=== PATIENT | female | born 1965 | race Two or more races ===

== ENCOUNTER 2020-09-07 19:47 | Observation (INO) | payer OTHER ==
[~2020-09-07] VITALS: Ht 165.1 cm; Wt 118.0 kg
[2020-09-07 21:33] LABS: BILIRUBIN,URINE NEGATIVE (NEG); CLARITY,URINE CLEAR; COLOR,URINE YELLOW; NITRITE,URINE NEGATIVE (NEG); PROTEIN,URINE NEGATIVE (NEG-TRACE); UROBILINOGEN,URINE 0.2 mg/dL (0.2 mg/dL)
--- NOTE | 2020-09-07 21:35 | PHYS DOC ---
Past Medical History Past Medical History: Other Additional Past Medical Histor: polycystic kidney disease (LORETTAPRIYANKA Sewell RESPIRATORY THERAPIST ASSISTANT) Past Surgical History: , Other Additional Past Surgical Histo: ankle fracture repair, hernia repair (ROCHELLEPRIYANKA DELGADO RESPIRATORY THERAPIST ASSISTANT) Smoking Status: Never Smoker Alcohol Use: None Drug Use: None (ROCHELLEPRIYANKA DELGADO RESPIRATORY THERAPIST ASSISTANT) General Adult EDM: Chief Complaint: ABDOMINAL PAIN HPI: HPI: Patient is a 55 year old female with history of acid reflux, who presents to the ED today complaining of mild intermittent generalized abdominal pain with nausea that began yesterday. Patient describes the pain as a bloating feeling. Patient states she thought she was constipated, she took a stool softener and had loose stools this morning. Denies any vomiting. Denies anything specifically alleviating or relieving the pain. (LORETTAPRIYANKA Sewell RESPIRATORY THERAPIST ASSISTANT) Review of Systems: Review of Systems: Constitutional: Denies fever or chills. [] Eyes: Denies change in visual acuity. [] HENT: Denies nasal congestion or sore throat. [] Respiratory: Denies cough or shortness of breath. [] Cardiovascular: Denies chest pain or edema. [] GI: Reports generalized abdominal pain, diarrhea after stool softener, denies vomiting, bloody stools : Denies dysuria. [] Musculoskeletal: Denies back pain or joint pain. [] Integument: Denies rash. [] Neurologic: Denies headache, focal weakness or sensory changes. [] Psychiatric: Denies depression or anxiety. [] (PRIYANKA MADRIGAL RESPIRATORY THERAPIST ASSISTANT) Heart Score: C/O Chest Pain: N/A Risk Factors: Risk Factors: DM, Current or recent (<one month) smoker, HTN, HLP, family history of CAD, obesity. Risk Scores: Score 0 - 3: 2.5% MACE over next 6 weeks - Discharge Home Score 4 - 6: 20.3% MACE over next 6 weeks - Admit for Clinical Observation Score 7 - 10: 72.7% MACE over next 6 weeks - Early Invasive Strategies (PRIYANKA MADRIGAL RESPIRATORY THERAPIST ASSISTANT) Allergies: Allergies: Allergies Coded Allergies Type Severity Reaction Last Updated Verified hydrocodone Adverse Reaction Intermediate headache 01/24/15 Yes (PRIYANKA MADRIGAL RESPIRATORY THERAPIST ASSISTANT) Physical Exam: PE: Constitutional: Well developed, well nourished, no acute distress, non-toxic appearance. [] HENT: Normocephalic, atraumatic, bilateral external ears normal, oropharynx moist, no oral exudates, nose normal. [] Eyes: PERRLA, EOMI, conjunctiva normal, no discharge. [] Neck: Normal range of motion, no tenderness, supple, no stridor. [] Cardiovascular:Heart rate regular rhythm, no murmur [] Lungs & Thorax: Bilateral breath sounds clear to auscultation [] Abdomen: Bloated abdomen. Bowel sounds normal, soft, no tenderness, no masses, no pulsatile masses. [] Skin: Warm, dry, no erythema, no rash. [] Back: No tenderness, no CVA tenderness. [] Extremities: No tenderness, no cyanosis, no clubbing, ROM intact, no edema. [] Neurologic: Alert and oriented X 3, normal motor function, normal sensory function, no focal deficits noted. [] Psychologic: Affect normal, judgement normal, mood normal. [] (PRIYANKA MADRIGAL APRN) Current Patient Data: Vital Signs: Vital Signs Date Time Temp Pulse Resp B/P (MAP) Pulse Ox O2 Delivery O2 Flow Rate FiO2 09/07/20 19:47 98.6 64 18 155/104 (117) 98 Room Air 98.6 (PRIYANKA MADRIGAL APRN) EKG: EKG: [] (PRIYANKA MADRIGAL APRN) Radiology/Procedures: Radiology/Procedures: [] (PRIYANKA MADRIGAL APRN) Radiology/Procedures: IMAGING REPORT Signed PATIENT: LETITIA GALLAGHER ACCOUNT: [id number] : 1965 LOCATION: ER AGE: 55 SEX: F EXAM STATUS: REG ER ORD. PHYSICIAN: PRIYANKA MADRIGAL APRN REASON: abd pain constipation? PROCEDURE: CT ABDOMEN PELVIS WO CONTRAST Study: CT abdomen/pelvis without intravenous contrast Indication: Abdominal pain. Constipation. Comparison: 01/24/2015 Technique: Helical CT imaging performed of the abdomen and pelvis without the use of intravenous contrast. Sagittal and coronal reformats were obtained. One or more of the following individualized dose reduction techniques were utilized for this examination: 1. Automated exposure control 2. Adjustment of the mA and/or kV according to patient size 3. Use of iterative reconstruction technique. Findings: Inherently limited evaluation without intravenous contrast. Chest: No significant abnormality at the lower chest. Liver: Innumerable hepatic cystic foci. Many have increased in size from the comparison but measures simple density. Gallbladder/Biliary Tree: No CT manifestations of acute cholecystitis. Nondilated biliary tree. Pancreas: No peripancreatic inflammation or ductal dilatation. Spleen: Normal in size. Adrenal Glands: No adrenal gland mass. Kidneys/Ureters/Bladder: Enlarged polycystic kidneys. No cyst is identified on this noncontrast study with complex features. Unremarkable urinary bladder. Reproductive Organs: Within normal limits. Colon: Only a small amount of stool within the colon. No localized wall thickening or surrounding inflammation. Appendix: Normal. Small Bowel: Nonobstructed. Stomach: Within normal limits noting limited assessment on account of underdistention. Vasculature: Nonaneurysmal aorta. Mild scattered calcific atherosclerosis. Nonspecific fatty stranding along the inferior mesenteric artery which faintly extends along the lower abdominal aorta and common iliac arteries. Lymph Nodes: No lymphadenopathy by size criteria. Peritoneum and Body Wall: Trace free fluid such as seen within the pelvis on image 78 series 2. No pneumoperitoneum. Unchanged soft tissue fullness at the umbilicus. Bones: No acute or aggressive osseous process. Mild degenerative changes at a few locations. Miscellaneous: None. Impression: 1. No acute abnormality is identified throughout the abdomen or pelvis. There is only a small amount of well-formed stool within the colon. 2. Polycystic kidney disease in addition to innumerable hepatic cysts. These findings were present on the 2015 comparison. No newly seen cyst with complex features noting the absence of intravenous contrast. 3. There is fatty stranding along the inferior mesenteric artery and faintly along the distal abdominal aorta and common iliac arteries. This is nonspecific but is of questionable significance. Notably there are no findings involving the colon that would suggest ischemia. 4. Trace free pelvic fluid could be related to chronic renal insufficiency. Electronically signed by: MAX HAMM MD (09/07/2020 10:56 PM) [facility] DICTATED and SIGNED BY: MAX HAMM MD DATE: 09/07/20 [id number] ([facility]) Course & Med Decision Making: Course & Med Decision Making Pertinent Labs and Imaging studies reviewed. (See chart for details) This is a 55-year-old female patient presenting to the ED today complaining of generalized abdominal pain described as bloating. Patient was constipated yesterday and took a stool softener and had loose stool this morning. CBC with a WBC of 11.3, CMP with no acute findings, UA positive for small amount of leukocytes and 11-20 WBCs. Patient was given Rocephin in the ED, IV fluids, Pepcid, Zofran and Toradol. Will refrain from any narcotics due to possible constipation risk [address] Martinez, pending CT of the abdomen and (PRIYANKA MADRIGAL APRN) Course & Med Decision Making I received signout from a SERVICE CENTER COORDINATOR at shift change. On re-evaluation, patient describes her pain was severe that started in the upper abdomen and moved to her lower abdomen over the past day, improved with analgesia in ed but states her pain has not resolved. CT findings show fatty stranding along the inferior mesenteric artery and faintly along the distal abdominal aorta and common iliac arteries. This is nonspecific but is of questionable significance. Notably there are no findings involving the colon that would suggest ischemia. Pt with daughter at bedside, (patient consents to his/her/their knowledge and involvement in pts' medical care), who is concerned pt has a uti. Both pt and daughter concerned about recurring pain and long ed wait times. Given possible concern for bowel ischemia, lactic acid ordered and will admit for further medical management/serial abdominal exams. Patient stable time of admission and agrees to this plan. I have spoken with the patient and/or caregivers. I have explained the patient's condition, diagnosis and treatment plan based on the information available to me at this time. I have answered the patient's and/or caregivers questions and answered any concerns. The patient and/or caregivers have as good an understanding of the patient's diagnosis, condition and treatment plan as can be expected at this point. The patient has been stabilized within the capability of the emergency department. The patient will be transported for further care and management or will be moved to an observation or inpatient service. I have communicated with the staff or medical practitioner taking over this patient's care. (ELAINA MARTINEZ DO) Conchita Disclaimer: Dragon Disclaimer: This electronic medical record was generated, in whole or in part, using a voice recognition dictation system. (PRIYANKA MADRIGAL APRN) Departure Departure Impression: Primary Impression: Abdominal pain Additional Impressions: UTI (urinary tract infection) Nausea Disposition: ADMITTED INPATIENT Admitting Physician: YOBANI (Dr. Sales) (ELAINA MARTINEZ DO) Condition: STABLE Referrals: UNKNOWN PCP NAME (PCP) follow up with your doctor in one week Patient Instructions: Urinary Tract Infection PRIYANKA MADRIGAL APRN Sep 07, 2020 21:35 ELAINA MARTINEZ DO Sep 07, 2020 23:07
[2020-09-07 21:39] LABS: BASO # 0.1 x10^3/uL (0.0-0.2); BASO % 1 % (0-3); EOS # 0.1 x10^3/uL (0.0-0.7); EOS % 1 % (0-3); HEMATOCRIT 45.7 % (36.0-47.0); HEMOGLOBIN 15.7 g/dL (12.0-15.5); LYMPH # 1.4 x10^3/uL (1.0-4.8); LYMPH % 13 % (24-48); MEAN CORPUSCULAR HEMOGLOBIN 30 pg (25-35); MEAN CORPUSCULAR HGB CONC 34 g/dL (31-37); MEAN CORPUSCULAR VOLUME 87 fL (79-100); MONO % 9 % (0-9); NEUT # 8.7 x10^3/uL (1.8-7.7); NEUT % 77 % (31-73); PLATELET COUNT 206 x10^3/uL (140-400); RED BLOOD COUNT 5.23 x10^6/uL (3.50-5.40); WHITE BLOOD COUNT 11.3 x10^3/uL (4.0-11.0)
[2020-09-07 21:45] LABS: BACTERIA,URINE 0 /HPF (0-FEW); RBC,URINE 0 /HPF (0-2)
[2020-09-07 21:51] LABS: CREATININE 1.1 mg/dL (0.6-1.0); GFR 51.4; POTASSIUM 3.6 mmol/L (3.5-5.1)
[2020-09-07 21:57] LABS: ALBUMIN 3.7 g/dL (3.4-5.0); ALBUMIN/GLOBULIN RATIO 0.9 (1.0-1.7); TOTAL BILIRUBIN 0.9 mg/dL (0.2-1.0); TOTAL PROTEIN 7.7 g/dL (6.4-8.2)
[2020-09-07] MEDS ORDERED: FAMOTIDINE 20 MG/2 ML VIAL IVP ONE (22:00)
[2020-09-07] MEDS ORDERED: ONDANSETRON PF 4 MG/2 ML VIAL. IVP ONE (22:00)
[2020-09-07] MEDS ORDERED: KETOROLAC 30 MG/ML VIAL. IVP ONE (22:00)
[2020-09-07] MEDS ORDERED: cefTRIAXone IV Push 1 GM VIAL. IVP ONE (22:30)
[2020-09-07] MEDS ORDERED: IV NORMAL SALINE 1000ML BAG 1,000 ML IV ONE (22:30)
--- NOTE | 2020-09-07 22:58 | RAD ---
Study: CT abdomen/pelvis without intravenous contrast Indication: Abdominal pain. Constipation. Comparison: 01/24/2015 Technique: Helical CT imaging performed of the abdomen and pelvis without the use of intravenous cont rast. Sagittal and coronal reformats were obtained. One or more of the following individualized dose reduction techniques were utilized for this examinat ion: 1. Automated exposure control 2. Adjustment of the mA and/or kV according to patient size 3. Use of iterative reconstruction technique. Findings: Inherently limited evaluation without intravenous contrast. Chest: No significant abnormality at the lower chest. Liver: Innumerable hepatic cystic foci. Many have increased in size from the comparison but measures simple density. Gallbladder/Biliary Tree: No CT manifestations of acute cholecystitis. Nondilated biliary tree. Pancreas: No peripancreatic inflammation or ductal dilatation. Spleen: Normal in size. Adrenal Glands: No adrenal gland mass. Kidneys/Ureters/Bladder: Enlarged polycystic kidneys. No cyst is identified on this noncontrast study with complex features. Unremarkable urinary bladder. Reproductive Organs: Within normal limits. Colon: Only a small amount of stool within the colon. No localized wall thickening or surrounding inf lammation. Appendix: Normal. Small Bowel: Nonobstructed. Stomach: Within normal limits noting limited assessment on account of underdistention. Vasculature: Nonaneurysmal aorta. Mild scattered calcific atherosclerosis. Nonspecific fatty strandin g along the inferior mesenteric artery which faintly extends along the lower abdominal aorta and comm on iliac arteries. Lymph Nodes: No lymphadenopathy by size criteria. Peritoneum and Body Wall: Trace free fluid such as seen within the pelvis on image 78 series 2. No pn eumoperitoneum. Unchanged soft tissue fullness at the umbilicus. Bones: No acute or aggressive osseous process. Mild degenerative changes at a few locations. Miscellaneous: None. Impression: 1. No acute abnormality is identified throughout the abdomen or pelvis. There is only a small amount of well-formed stool within the colon. 2. Polycystic kidney disease in addition to innumerable hepatic cysts. These findings were present o n the 2014 comparison. No newly seen cyst with complex features noting the absence of intravenous con trast. 3. There is fatty stranding along the inferior mesenteric artery and faintly along the distal abdomi nal aorta and common iliac arteries. This is nonspecific but is of questionable significance. Notably there are no findings involving the colon that would suggest ischemia. 4. Trace free pelvic fluid could be related to chronic renal insufficiency. Electronically signed by: MAX HAMM MD (09/07/2020 10:56 PM) [facility]
[2020-09-08] MEDS: IV NORMAL SALINE 1000ML BAG 1,000 ML IV SCH ×2 (00:50→10:37)
[2020-09-08 02:30] VITALS: BP 129/76
[2020-09-08] MEDS ORDERED: LISI10TA16 PO (02:51)
--- NOTE | 2020-09-08 03:44 | NUR ---
admitted to room 408 at 0213, admission care done
[2020-09-08 07:00] VITALS: BP 144/80
[2020-09-08 11:00] VITALS: BP 145/80
[2020-09-08] MEDS ORDERED: AMOX1TAB61 PO (13:02)
--- NOTE | 2020-09-08 14:06 | SSS ---
ADMIT DATE: 09/08/2020 SHORT STAY SUMMARY CHIEF COMPLAINT: Nausea, vomiting, diarrhea. HISTORY OF PRESENT ILLNESS: The patient is a pleasant 55-year-old female who ate some bad coleslaw on Wednesday. Since then, she has been having some cramping with some associated nausea. She also had some loose stools. She came to the ER last night for evaluation, admitted overnight for observation. This morning, she is doing better and wants to go home, but once this get a second opinion from the maid supervisor before she leaves. PAST MEDICAL HISTORY: Hypertension. ALLERGIES: HYDROCODONE. FAMILY HISTORY: Diabetes. SOCIAL HISTORY: She does not drink, smoke or take drugs. MEDICATIONS: Reviewed, please refer to the [facility]. Augmentin 875 p.o. b.i.d. and lisinopril 10 a day. REVIEW OF SYSTEMS: GENERAL: No history of weight change, weakness or fevers. SKIN: No bruising, hair changes or rashes. EYES: No blurred, double or loss of vision. NOSE AND THROAT: No history of nosebleeds, hoarseness or sore throat. HEART: No history of palpitations, chest pain or shortness of breath on exertion. LUNGS: Denies cough, hemoptysis, wheezing or shortness of breath. GASTROINTESTINAL: Denies changes in appetite, nausea, vomiting, diarrhea or constipation. GENITOURINARY: No history of frequency, urgency, hesitancy or nocturia. NEUROLOGIC: Denies history of numbness, tingling, tremor or weakness. PSYCHIATRIC: No history of panic, anxiety or depression. ENDOCRINE: No history of heat or cold intolerance, polyuria or polydipsia. EXTREMITIES: Denies muscle weakness, joint pain, pain on walking or stiffness. PHYSICAL EXAMINATION: VITALS: Within normal limits and are stable. GENERAL: No apparent distress. Alert and oriented. HEENT: Normal cephalic atraumatic, external auditory canals are patent EYES: Extraocular muscles are intact, pupils are equally round and reactive to light and accommodation MUSCULOSKELETAL: Well developed, well nourished, good range of motion ENDOCRINE: No thyromegaly was palpated LYMPHATICS: No cervical chain or axillary nodes were noted HEMATOPOIETIC: No bruising NECK: Supple, no JVD, no thyromegaly was noted. LUNGS: Clear to auscultation in all lung meyer without rhonchi or wheezing. HEART: RRR, S1, S2 present. Peripheral pulses intact, no obvious murmurs were noted. ABDOMEN: Soft, nontender. Positive bowel sounds no organomegaly, normal bowel sounds. EXTREMITIES: Without any cyanosis, clubbing, or edema. Pedal pulses intact, Homans sign is negative. NEUROLOGIC: Normal speech, normal tone. A and O x3, moves all extremities, no obvious focal deficits. PSYCHIATRIC: Normal affect, normal mood. Stable. SKIN: No ulcerations or rashes, good skin turgor, no jaundice. VASCULAR: Good capillary refill, neurovascular bundle appears to be intact. IMAGING STUDIES: CT of the abdomen shows polycystic ovary disease and some fatty stranding of the inferior mesenteric artery, which was nonspecific. There were no acute changes. She does have some stool and some trace free fluid. LABORATORY DATA: White count 11. Electrolytes are normal. Her urinalysis shows small amount of leukocyte esterase and 11-20 white cells. ASSESSMENT AND PLAN: Resolving gastrointestinal symptoms, suspect she had some bad coleslaw that could have caused all of this. Her symptoms are resolving. She is requesting to go home, but she states she wants to see GI before she leaves. I went ahead and put the discharge orders in. I also gave her a script for Augmentin 875 p.o. b.i.d. for 1 week as she has a UTI. DISPOSITION: Home. ACTIVITY: As tolerated. DIET: Low sodium. MEDICATIONS: Please see the medication. Total time [address]: Jaun TID: [id number]
--- NOTE | 2020-09-08 14:31 | PDOC2 ---
GI CONSULT Reason For Consult: lower abdominal pain HPI: HPI: 55 year old female with history of acid reflux on tagamet prn who presents to the ED today complaining of mild intermittent generalized abdominal pain with nausea that began yesterday. Patient describes the pain as a bloating feeling. Patient states she thought she was constipated, she took Dulcolax and had loose stools yesterday. Denies any vomiting. She ate coleslaw on Wednesday and began feeling bloated on . CT with 1. Polycystic kidney disease in addition to innumerable hepatic cysts. These findings were present on the 2015 comparison. No newly seen cyst with complex features noting the absence of intravenous contrast. 2. There is fatty stranding along the inferior mesenteric artery and faintly along the distal abdominal aorta and common iliac arteries. This is nonspecific but is of questionable significance. Notably there are no findings involving the colon that would suggest ischemia. Labs with elevated WBC at 11.3 with normal lactic acid. UA with 11-20 WBC and small Leukocyte esterase PMH: PMH: Past Medical History Past Medical History: EGD with Dr Renee 2 years ago that reprotedly dmoenstrated Helicobacter pylori for which she was treated with antibiotics. She also reprots polyps on colonoscopy Additional Past Medical Histor: polycystic kidney disease Past Surgical History: , Other Additional Past Surgical Histo: ankle fracture repair, hernia repair Meds: Lisinopril Tagamet Smoking Status: Never Smoker Alcohol Use: None Drug Use: None : Allergies Coded Allergies Type Severity Reaction Last Updated Verified hydrocodone Adverse Reaction Intermediate headache 01/24/15 Yes FH: Family History: No pertinent hx Social History: Smoke: No ALCOHOL: none Drugs: None ROS: Constitutional: Denies fever or chills. [] Eyes: Denies change in visual acuity. [] HENT: Denies nasal congestion or sore throat. [] Respiratory: Denies cough or shortness of breath. [] Cardiovascular: Denies chest pain or edema. [] GI: Reports generalized abdominal pain, diarrhea after stool softener, denies vomiting, bloody stools : Denies dysuria. [] Musculoskeletal: Denies back pain or joint pain. [] Integument: Denies rash. [] Neurologic: Denies headache, focal weakness or sensory changes. [] Psychiatric: Denies depression or anxiety. [] VItals: Vitals: Vital Signs Date Time Temp Pulse Resp B/P (MAP) Pulse Ox O2 Delivery O2 Flow Rate FiO2 09/08/20 11:00 98.6 76 18 145/80 (101) 98 Room Air 98.6 Labs: Labs: Laboratory Tests Test 09/07/20 21:20 09/07/20 21:25 09/08/20 00:54 Urine Collection Type Unknown Urine Color Yellow Urine Clarity Clear Urine pH 6.0 (<5.0-8.0) Urine Specific [place] 1.010 (1.000-1.030) Urine Protein Negative mg/dL (NEG-TRACE) Urine Glucose (UA) Negative mg/dL (NEG) Urine Ketones (Stick) Negative mg/dL (NEG) Urine Blood Negative (NEG) Urine Nitrite Negative (NEG) Urine Bilirubin Negative (NEG) Urine Urobilinogen Dipstick 0.2 mg/dL (0.2 mg/dL) Urine Leukocyte Esterase Small (NEG) Urine RBC 0 /HPF (0-2) Urine WBC 11-20 /HPF (0-4) Urine Squamous Epithelial Cells Few /LPF Urine Renal Epithelial Cells Few /LPF Urine Bacteria 0 /HPF (0-FEW) Urine Mucus Slight /LPF White Blood Count 11.3 x10^3/uL (4.0-11.0) Red Blood Count 5.23 x10^6/uL (3.50-5.40) Hemoglobin 15.7 g/dL (12.0-15.5) Hematocrit 45.7 % (36.0-47.0) Mean Corpuscular Volume 87 fL (79-100) Mean Corpuscular Hemoglobin 30 pg (25-35) Mean Corpuscular Hemoglobin Concent 34 g/dL (31-37) Red Cell Distribution Width 14.0 % (11.5-14.5) Platelet Count 206 x10^3/uL (140-400) Neutrophils (%) (Auto) 77 % (31-73) Lymphocytes (%) (Auto) 13 % (24-48) Monocytes (%) (Auto) 9 % (0-9) Eosinophils (%) (Auto) 1 % (0-3) Basophils (%) (Auto) 1 % (0-3) Neutrophils # (Auto) 8.7 x10^3/uL (1.8-7.7) Lymphocytes # (Auto) 1.4 x10^3/uL (1.0-4.8) Monocytes # (Auto) 1.0 x10^3/uL (0.0-1.1) Eosinophils # (Auto) 0.1 x10^3/uL (0.0-0.7) Basophils # (Auto) 0.1 x10^3/uL (0.0-0.2) Sodium Level 138 mmol/L (136-145) Potassium Level 3.6 mmol/L (3.5-5.1) Chloride Level 102 mmol/L (98-107) Carbon Dioxide Level 30 mmol/L (21-32) Anion Gap 6 (6-14) Blood Urea Nitrogen 10 mg/dL (7-20) Creatinine 1.1 mg/dL (0.6-1.0) Estimated GFR (Cockcroft-Gault) 51.4 BUN/Creatinine Ratio 9 (6-20) Glucose Level 115 mg/dL (70-99) Calcium Level 9.0 mg/dL (8.5-10.1) Total Bilirubin 0.9 mg/dL (0.2-1.0) Aspartate Amino Transf (AST/SGOT) 17 U/L (15-37) Alanine Aminotransferase (ALT/SGPT) 22 U/L (14-59) Alkaline Phosphatase 114 U/L (46-116) Total Protein 7.7 g/dL (6.4-8.2) Albumin 3.7 g/dL (3.4-5.0) Albumin/Globulin Ratio 0.9 (1.0-1.7) Lipase 127 U/L (73-393) Lactic Acid Level 0.8 mmol/L (0.4-2.0) Imaging: Imaging: Technique: Helical CT imaging performed of the abdomen and pelvis without the use of intravenous contrast. Sagittal and coronal reformats were obtained. One or more of the following individualized dose reduction techniques were utilized for this examination: 1. Automated exposure control 2. Adjustment of the mA and/or kV according to patient size 3. Use of iterative reconstruction technique. Findings: Inherently limited evaluation without intravenous contrast. Chest: No significant abnormality at the lower chest. Liver: Innumerable hepatic cystic foci. Many have increased in size from the comparison but measures simple density. Gallbladder/Biliary Tree: No CT manifestations of acute cholecystitis. Nondilated biliary tree. Pancreas: No peripancreatic inflammation or ductal dilatation. Spleen: Normal in size. Adrenal Glands: No adrenal gland mass. Kidneys/Ureters/Bladder: Enlarged polycystic kidneys. No cyst is identified on this noncontrast study with complex features. Unremarkable urinary bladder. Reproductive Organs: Within normal limits. Colon: Only a small amount of stool within the colon. No localized wall thickening or surrounding inflammation. Appendix: Normal. Small Bowel: Nonobstructed. Stomach: Within normal limits noting limited assessment on account of underdistention. Vasculature: Nonaneurysmal aorta. Mild scattered calcific atherosclerosis. Nonspecific fatty stranding along the inferior mesenteric artery which faintly extends along the lower abdominal aorta and common iliac arteries. Lymph Nodes: No lymphadenopathy by size criteria. Peritoneum and Body Wall: Trace free fluid such as seen within the pelvis on image 78 series 2. No pneumoperitoneum. Unchanged soft tissue fullness at the umbilicus. Bones: No acute or aggressive osseous process. Mild degenerative changes at a few locations. Miscellaneous: None. Impression: 1. No acute abnormality is identified throughout the abdomen or pelvis. There is only a small amount of well-formed stool within the colon. 2. Polycystic kidney disease in addition to innumerable hepatic cysts. These findings were present on the 2015 comparison. No newly seen cyst with complex features noting the absence of intravenous contrast. 3. There is fatty stranding along the inferior mesenteric artery and faintly along the distal abdominal aorta and common iliac arteries. This is nonspecific but is of questionable significance. Notably there are no findings involving the colon that would suggest ischemia. 4. Trace free pelvic fluid could be related to chronic renal insufficiency. Electronically signed by: MAX HAMM MD (09/07/2020 10:56 PM) [facility] PE: GEN: NAD HEENT: Atraumatic, PERRLA LUNGS: CTAB HEART: RRR, no murmurs ABD: NABS, S/ND/NT, no masses EXTREMITY: No edema SKIN: No rashes, no jaundice NEURO/PSYCH: A & O 3 A/P: A/P: 1) Lower abdominal pain: CT with fatty stranding along the inferior mesenteric artery and faintly along the distal abdominal aorta and common iliac arteries. Lactic acid normal. The patient gas question of about getting a Helicobacter breath tests. I have instructed her that this is an outpatient test that can be done with her PCP or with her GI doctor, Dr Renee. Favor followup with Dr Renee Discussed findings with patient and daughter. They want to leave now and r equest pain meds. I have explained that the primary is the one who write for pain meds in house and outpatient. Daughter has asked me to use my pager to page Dr Zapien, and I have explained that the nurses will can do this for her. She requests further explanation about why I cannot use my own pager to page another physician. I have explained that I do not have a pager mush less one that pages other doctors and requested that she ask the nurses for assistance contacting another doctor. I have given both the patient and her daughter ER precautions regarding return of her pain given that their preference is to leave. 2) Diarrhea: likely due to dulcolax use. Monitor cc: MD MIGUELINA Sal ALKA M MD Sep 08, 2020 14:31
--- NOTE | 2020-09-08 16:10 | NUR ---
patient discharged with self care and follow up instructions. Patient verbalized understanding of discharge instructions. Ibuprofen 800mg every 8 hours as needed # 30 with no refills was called in per verbal order of Dr. Zapien. Addendum: 09/08/20 at 1625 by PRINCE CASEY RN RN [place] [id number] [id number], per patient this is the correct pharmacy.
== END 2020-09-08 15:29 | disposition home or self-care (01) ==
LOC: ER 19:47 → ED HOLD 09-08 00:52 → 4 NORTH 09-08 02:14
PROVIDERS: ADMIT Family Medicine; ATTEND Family Medicine
DX: R10.30 Lower abdominal pain, unspecified (principal); R11.2 Nausea with vomiting, unspecified; R19.7 Diarrhea, unspecified; Q61.3 Polycystic kidney, unspecified; N39.0 Urinary tract infection, site not specified; K59.00 Constipation, unspecified; I10 Essential (primary) hypertension; K76.89 Other specified diseases of liver; Z79.899 Other long term (current) drug therapy
CPT/HCPCS: 36415; 74176; 80053; 81001; 83605; 83690; 85025; 87086; 96361; 96374; 96375; 99284; G0378; J0696; J1885; J2405; J3490; J7030; G0379